=== PATIENT | male | born 1980 | race Caucasian/White ===

== ENCOUNTER 2021-10-06 12:57 | Emergency (ER) | payer OTHER, SELFPAY ==
[2021-10-06 14:31] VITALS: BP 132/83; PULSE 68; RESP 17; TEMP 37.1; O2SAT 97; BMI 29.3
--- NOTE | 2021-10-06 15:10 | PC.NURSE ---
PT'S PENIS AND FORESKIN APPEARS SWOLLEN. NO APPARENT DRIANAGE NOTED.
--- NOTE | 2021-10-06 15:31 | ED.MALEGU ---
HPI - Male Genitourinary General Chief complaint: Urogenital-Male Stated complaint: Discharge & Ulcer on Foreskin Time Seen by Provider: 10/06/21 14:50 Source: patient Mode of arrival: ambulatory Limitations: no limitations History of Present Illness HPI Narrative: 41 yold male presents to the ED for penile discharge from foreskin and ulcer for about 1 weeks and a half. patient states 3 weeks ago he had unprotected sex with a man and than for the past week and a half he has these symptoms. Patient denies any recent trauma to the area. patient states he was tested by two urgent cares and was negative for syphyliss, herpes, chlamydia, gonorrhea, HIV, and hepatitis. patient states presently taking doxyiclyine and finised course of steroids. patient states steroids improved the swelling. Related Data Previous Rx's Medication Instructions Recorded ciprofloxacin HCl 500 mg tablet 500 mg PO Q12H 3 days #6 tabs 10/06/21 prednisone 20 mg tablet 40 mg PO DAILY 5 days #10 tabs 10/06/21 Allergies Allergy/AdvReac Type Severity Reaction Status Date / Time Penicillin Allergy Unknown as a child Uncoded 09/02/18 00:00 Review of Systems Review of Systems: foreskin swelling, discharge from foreskin and ulcers . Yes all other systems are reviewed and are negative [facility] Social History Social History Alcohol intake: never Patient Tobacco Use Status: Never used Tobacco Use of substances other than those prescribed or required for medical reasons: No Advance Directives: Yes Advance Directives Information Provided: Yes Advance Directives on File: No Physical Exam Vital Signs: Vital Signs: Last Vital Signs Temp 98.8 F 10/06/21 14:31 Pulse 68 10/06/21 14:31 Resp 17 10/06/21 14:31 BP 132/83 10/06/21 14:31 Pulse Ox 97 10/06/21 14:31 O2 Del Method 10/06/21 14:31 BMI result Body Mass Index 29.3 Const: General: cooperative, healthy appearing, comfortable, no acute distress, well developed, alert, awake and Physically active Orientation/consciousness: oriented to time and patient oriented x3 HEENT: Head: Yes normal to inspection, Yes No palpable skull fracture present, Yes normocephalic, Yes atraumatic and No abrasion Eyes: General: appearance normal, both eyes and all related structures Neck: Neck: Yes normal visual inspection, Yes full ROM, Yes no lymphadenopathy, Yes no meningeal signs, Yes trachea midline, Yes supple, No anterior neck swelling and No tender Chest: Chest palpation & inspection: normal inspection of the chest and normal palpation of entire chest wall Resp: Effort & Inspection: normal respiratory effort and able to speak in complete sentences Auscultation: clear to auscultation bilaterally Cardio: Jugular venous distension: no JVD Heart sounds: S1 normal heart sound present and S2 normal heart sound present GI: Inspection: Yes normal to inspection and No abdominal wall ecchymosis Palpation (GI): Soft to palpation, not firm, nontender, no guarding and not rigid : General: No CVA tenderness and Yes no CVA tenderness Penis: circumcised and ulceration Scrotum: scrotum normal Testes: Testes normal Male genitals images: 1. Positive for ulceration and penile shaft near glans penis is swollen ( foreskin) with green discharge. negative for penile discharge. negative for inguinal lymphadenopathy/ulcers. negative for urethral meatus discharge Back/Spine/Pelvis: Back: no CVA tenderness, No CVA tenderness and No back tenderness Skin: General skin exam: no rashes or lesions noted and elasticity normal Neuro: General: oriented to time, patient oriented x3, gait normal, no meningeal signs and CN's II-XI intact bilaterally Cranial nerves: Yes CN's II-XII intact bilaterally Extrem: General: Yes normal to inspection and Yes full ROM Psych: Appearance: grossly normal, well kempt and not disheveled Course Course Course Narrative: No repeat for repeat testing of HiV, Syphyliss, Herpes, CLamydia, Gonorrhea, or hepatitis. Reevaluation(s) Reevaluation #1: Patient confirmed having sex with men. patient educated on LVG and H. Ducreyi. Patient educated on getting retested for HIV. Patient is circumsided but due to swelling at skin of shift below glans penis swellng it is presenting as phimosis/balanitis caused by an infection. skin is healthy pink so not considered ischemia. patient infromed to continue taking doxycline and will add cipro for coverage of h. ducreyi. ALso will be discharge with steroids Time: 16:05 MDM - Male Genitourinary MDM Narrative Medical decision making narrative: STD exposure, balanitis, penile discharge Discharge Plan Discharge Clinical Impression: Ulcer of penis Patient Disposition: Home, Self-Care Instructions: Phimosis (ED), Balanitis (ED) Additional Instructions: Recommend follow-up with Urology for further evaluation. Recommend retesting of HIV 1 month and 3 months from exposure. Return to the ED immediately for increased swelling of penis, worsening discharge, increased pain, fever, chills, nausea, vomiting, inability to urinate, abdominal pain, or any other concerning symptoms. Continue to doxycycline. He will be discharged with Cipro and steroids. Prescriptions: New prednisone 20 mg tablet 40 mg PO DAILY 5 Days Qty: 10 0RF ciprofloxacin HCl 500 mg tablet 500 mg PO Q12H 3 Days Qty: 6 0RF Referrals: Reed Collazo MD [Physician] - (Penile ulceration on shaft skin will swelling/green discharge. Balanitis) Interventions: ED Discharge Assessment Last Done: 10/06/21 16:29 Discharge Date/Time: 10/06/21 16:30 Print Language: Trin[place]
== END 2021-10-06 16:30 | disposition home or self-care (01) ==
PROVIDERS: Emergency Provider Emergency Medicine; PCP Family Medicine
DX: N48.5 Ulcer of penis (principal); N48.1 Balanitis; Z20.2 Contact with and (suspected) exposure to infections with a predominantly sexual mode of transmission; Z79.899 Other long term (current) drug therapy
CPT/HCPCS: 99283